=== PATIENT | male | born 1935 | race Caucasian/White ===

== ENCOUNTER 2017-09-16 14:36 | Emergency (ER) | payer MEDICARE, BC ==
[~2017-09-16] VITALS: Ht 175.3 cm; Wt 84.0 kg
[~2017-09-16 14:36] MED LIST: ALBU1AER INH; ASPI81 PO; FISH120014 PO; GLIM2TAB PO; GLUCTAB PO; LORTA5 PO; METO25 PO; MULT-34 PO; SIMV40TA PO; SPIRCAP INH; SYMB80AE INH; TRAM50TA PO
[2017-09-16 14:40] VITALS: BP 137/88; PULSE 114; RESP 18; TEMP 99.1; O2SAT 95
[2017-09-16] MEDS ORDERED: LOSA50TA PO (15:12)
[2017-09-16] MEDS ORDERED: GABA300C5 PO (15:12)
[2017-09-16] MEDS ORDERED: TAMS0.4C4 (15:12)
[2017-09-16] MEDS ORDERED: DOCU250C7 (15:12)
[2017-09-16] MEDS ORDERED: METO25TA3 PO (15:12)
[2017-09-16] MEDS ORDERED: ASPI-516 CHEW (15:12)
[2017-09-16] MEDS ORDERED: EMPA1TAB PO (15:12)
[2017-09-16] MEDS ORDERED: ATOR20TA15 PO (15:12)
[2017-09-16] MEDS ORDERED: METF500T PO (15:12)
[2017-09-16] MEDS ORDERED: SODIUM CHLORIDE 0.9% FLUSH 10 ML FLUSH IV FLUSH PRN (15:15)
[2017-09-16] MEDS ORDERED: SODIUM CHLORID 0.9% 500 ML INJ 500 ML IV ONE (15:15)
[2017-09-16 15:52] LABS: BILIRUBIN, URINE NEG (NEG); BLOOD, URINE MOD (NEG); GLUCOSE,URINE 1000 OR GREATER mg/dL (NEG); KETONE, URINE 40 mg/dL (NEG); NITRITE,URINE NEG (NEG); URINE COLOR YELLOW (YELLW/STRAW); URINE LEUKOCYTE ESTERASE NEG (NEG)
[2017-09-16 16:04] LABS: BICARBONATE 21.4 MEQ/L (21.0-32.0); CALCIUM 9.5 MG/DL (8.5-10.1)
[2017-09-16 16:07] LABS: BACTERIA, URINE MANY /hpf; RBC, URINE 0-3 /hpf (0-3); WBC, URINE 0-2 /hpf (0-5)
[2017-09-16 16:08] LABS: CREATININE 1.2 MG/DL (0.60-1.30)
[2017-09-16] MEDS ORDERED: cefTRIAXone INJ 1,000 MG in SODIUM CHLORIDE 0.9% INJ 100 ML IV ONE (16:15)
[2017-09-16 16:18] LABS: AUTOMATED NEUTROPHIL # 13.6 TH/MM3 (1.8-7.7); BASOPHIL # 0.1 TH/MM3 (0-0.2); BASOPHIL % 0.6 % (0.0-2.0); EOSINOPHIL % 0.1 % (0.0-4.0); HEMATOCRIT 41.8 % (39.0-51.0); LYMPH % 5.6 % (9.0-44.0); LYMPHOCYTE # 0.9 TH/MM3 (1.0-4.8); MEAN CELL VOLUME 96.3 FL (80.0-100.0); MEAN CORPUSCULAR HEMOGLOBIN 32.3 PG (27.0-34.0); MEAN CORPUSCULAR HGB CONC 33.5 % (32.0-36.0); MEAN PLATELET VOLUME 8.4 FL (7.0-11.0); MONO % 8.3 % (0.0-8.0); MONOCYTE # 1.3 TH/MM3 (0-0.9); NEUT % 85.4 % (16.0-70.0); PLATELET COUNT 257 TH/MM3 (150-450); RED BLOOD COUNT 4.34 MIL/MM3 (4.50-5.90); RED CELL DISTRIBUTION WIDTH 13.8 % (11.6-17.2); WHITE BLOOD COUNT 15.9 TH/MM3 (4.0-11.0)
--- NOTE | 2017-09-16 16:29 | PD ---
HPI Chief Complaint: Complaint Time Seen by Provider: 14:59 Travel History International Travel<30 days: No Contact w/Intl Traveler<30days: No Traveled to known affect area: No History of Present Illness HPI Patient is an 81-year-old male who presents the emergency room complaint of urinary urgency and frequency along with dysuria and urinary retention. Patient reports increased fullness to his lower abdomen. Patient denies any nausea vomiting, denies any constipation diarrhea. Patient denies any fevers or chills, denies any flank pain. patient reports that since Thursday, he has been having urinary issues. Reports that he has had acute urinary retention in the past secondary surgeries. Patient reports no history of BPH in the past. PFSH Past Medical History Cancer: No Cardiovascular Problems: Yes (CAD) High Cholesterol: Yes Diabetes: Yes Patient Takes Glucophage: Yes Diminished Hearing: No Endocrine: Yes Gastrointestinal Disorders: Yes (REFLUX) Genitourinary: No Hiatal Hernia: No Hypertension: Yes Immune Disorder: No Musculoskeletal: Yes (ARTHRITIS,BACK AND NECK) Neurologic: No Psychiatric: No Respiratory: Yes (PNEUMONIA, BRONCHITIES,ASTHMA) Thyroid Disease: No Tetanus Vaccination: < 5 Years Influenza Vaccination: Yes ?: Not Past Surgical History Appendectomy: Yes Cardiac Surgery: Yes (3 STENTS) Coronary Stent: Yes (TIMES 3 ON LEFT) Eye Surgery: Yes (RIGHT CATARACT REMOVED) Tonsillectomy: Yes Other Surgery: Yes (NECK SURGERY) Social History Alcohol Use: Yes (DAILY) Tobacco Use: No Substance Use: No Allergies-Medications (Allergen,Severity, Reaction): Coded Allergies: No Known Allergies (Unverified Adverse Reaction, Unknown, 09/16/17) Reported Meds & Prescriptions Reported Meds & Active Scripts Active Cipro (Ciprofloxacin HCl) 500 Mg Tab 500 Mg PO BID 7 Days Reported Tamsulosin (Tamsulosin HCl) 0.4 Mg Cap 0.4 Mg HS Metoprolol Tartrate 25 Mg Tab 25 Mg PO BID Metformin (Metformin HCl) 500 Mg Tab 500 Mg PO BIDPC Losartan (Losartan Potassium) 50 Mg Tab 50 Mg PO DAILY Jardiance (Empagliflozin) 10 Mg Tab 10 Mg PO DAILY Gabapentin 300 Mg Cap 300 Mg PO TID Docusate Sodium 250 Mg Cap 250 Mg DAILY Atorvastatin (Atorvastatin Calcium) 20 Mg Tab 20 Mg PO HS Aspirin 81 Mg Chew 81 Mg CHEW DAILY Review of Systems General / Constitutional: No: Fever Eyes: No: Visual changes HENT: No: Headaches Cardiovascular: No: Chest Pain or Discomfort Respiratory: No: Shortness of Breath Gastrointestinal: Positive: Abdominal Pain, No: Nausea, Vomiting, Diarrhea, Constipation Genitourinary: Positive: Urgency, Frequency, Dysuria, Decreased Urinary Output , Hesitancy, Incontinence Musculoskeletal: No: Pain Skin: No Rash Neurologic: No: Weakness Psychiatric: No: Depression Endocrine: No: Polydipsia Hematologic/Lymphatic: No: Easy Bruising Physical Exam Narrative GENERAL: Moderate distress SKIN: Focused skin assessment warm/dry. HEAD: Atraumatic. Normocephalic. EYES: Pupils equal and round. No scleral icterus. No injection or drainage. ENT: No nasal bleeding or discharge. Mucous membranes pink and moist. NECK: Trachea midline. No JVD. CARDIOVASCULAR: Regular rate and rhythm. No murmur appreciated. RESPIRATORY: No accessory muscle use. Clear to auscultation. Breath sounds equal bilaterally. GASTROINTESTINAL: Abdomen soft, tender lower abdomen in the suprapubic region, distended. Hepatic and splenic margins not palpable. Patient with no flank pain on exam MUSCULOSKELETAL: No obvious deformities. No clubbing. No cyanosis. No edema. NEUROLOGICAL: Awake and alert. No obvious cranial nerve deficits. Motor grossly within normal limits. Normal speech. PSYCHIATRIC: Appropriate mood and affect; insight and judgment normal. Data Data Last Documented VS Vital Signs Date Time Temp Pulse Resp B/P (MAP) Pulse Ox O2 Delivery O2 Flow Rate FiO2 09/16/17 17:09 85 135/68 (90) 95 09/16/17 14:40 99.1 18 Orders Orders Basic Metabolic Panel (Bmp) (09/16/17 15:05) Complete Blood Count With Diff (09/16/17 15:05) Urinalysis - C+S If Indicated (09/16/17 15:05) Iv Access Insert/Monitor (09/16/17 15:05) Sodium Chloride 0.9% Flush (Ns Flush) (09/16/17 15:15) Urinary Catheter Insert/Apply (09/16/17 15:05) Sodium Chlorid 0.9% 500 Ml Inj (Ns 500 M (09/16/17 15:15) Urine Culture (09/16/17 15:45) Ceftriaxone Inj (Rocephin Inj) (09/16/17 16:15) Labs Laboratory Tests Test 09/16/17 15:45 White Blood Count 15.9 TH/MM3 Red Blood Count 4.34 MIL/MM3 Hemoglobin 14.0 GM/DL Hematocrit 41.8 % Mean Corpuscular Volume 96.3 FL Mean Corpuscular Hemoglobin 32.3 PG Mean Corpuscular Hemoglobin Concent 33.5 % Red Cell Distribution Width 13.8 % Platelet Count 257 TH/MM3 Mean Platelet Volume 8.4 FL Neutrophils (%) (Auto) 85.4 % Lymphocytes (%) (Auto) 5.6 % Monocytes (%) (Auto) 8.3 % Eosinophils (%) (Auto) 0.1 % Basophils (%) (Auto) 0.6 % Neutrophils # (Auto) 13.6 TH/MM3 Lymphocytes # (Auto) 0.9 TH/MM3 Monocytes # (Auto) 1.3 TH/MM3 Eosinophils # (Auto) 0.0 TH/MM3 Basophils # (Auto) 0.1 TH/MM3 CBC Comment AUTO DIFF Differential Comment AUTO DIFF CONFIRMED Urine Collection Type CLEAN CATCH Urine Color YELLOW Urine Turbidity CLEAR Urine pH 5.0 Urine Specific [place] GREATER/EQUAL 1.030 Urine Protein 100 mg/dL Urine Glucose (UA) 1000 OR GREATER mg/dL Urine Ketones 40 mg/dL Urine Occult Blood MOD Urine Nitrite NEG Urine Bilirubin NEG Urine Urobilinogen 0.2 MG/DL Urine Leukocyte Esterase NEG Urine RBC 0-3 /hpf Urine WBC 0-2 /hpf Urine Bacteria MANY /hpf Microscopic Urinalysis Comment CULTURE INDICATED Blood Urea Nitrogen 29 MG/DL Creatinine 1.20 MG/DL Random Glucose 202 MG/DL Calcium Level 9.5 MG/DL Sodium Level 137 MEQ/L Potassium Level 4.1 MEQ/L Chloride Level 102 MEQ/L Carbon Dioxide Level 21.4 MEQ/L Anion Gap 14 MEQ/L Estimat Glomerular Filtration Rate 58 ML/MIN [facility] Medical Decision Making Medical Screen Exam Complete: Yes Emergency Medical Condition: Yes Medical Record Reviewed: Yes Interpretation(s) Vital Signs Date Time Temp Pulse Resp B/P (MAP) Pulse Ox O2 Delivery O2 Flow Rate FiO2 09/16/17 14:40 99.1 114 18 137/88 (104) 95 Differential Diagnosis acute urinary retention, electrolyte abnormality, uti Narrative Course During the course of the patients emergency department visit, the patients history, examination, and differential diagnosis were reviewed with the patient. The patient was placed on a groundwater monitoring technician with oximetry and frequent blood pressure monitoring. The patient had an IV access obtained and blood work sent for analysis. The patient was initially provided IVF Ribera catheter was placed - 1500ml of urine output was obtained The patients laboratory studies were reviewed and remarkable for: CBC & BMP Diagram 09/16/17 15:45 Calcium Level 9.5 UA positive for moderate blood, 40 ketones, thousand or greater glucose, many bacteria, and IV dose of Rocephin was administered to patient. I reviewed all labs and also with patient in detail, patient was given an IV dose of Rocephin in the emergency room for treatment of UTI, patient does feel well enough to be discharged home with outpatient follow-up. Patient understands needs to follow with primary care doctor as well as a urologist, signs and symptoms of when to return to the emergency room was reviewed patient detail. Diagnosis Primary Impression: Acute urinary retention Additional Impressions: UTI (urinary tract infection) Qualified Codes: N30.01 - Acute cystitis with hematuria Renal insufficiency Referrals: Jesus Ruth DO Patient Instructions: General Instructions Additional Instructions: Please provide patient with a copy of their lab work at discharge Please follow up with your primary care doctor in 2-3 days Return to the ER if symptoms worsen or progress or if you develop any fevers or chills or worsening symptoms Return to the ER as needed Please follow-up with urologist as soon as possible Please follow-up with all cultures from today Please take all antibiotics as prescribed, drink plenty of fluids Med/Other Pt SpecificInfo: Prescription(s) given Scripts Ciprofloxacin (Cipro) 500 Mg Tab 500 MG PO BID for Infection for 7 Days, #14 TAB 0 Refills Prov: Flores Blas DO 09/16/17 Disposition: 01 DISCHARGE HOME Condition: Stable Flores Blas DO Sep 16, 2017 16:29
[2017-09-16] MEDS ORDERED: CIPR-9 PO (16:52)
[2017-09-16 17:09] VITALS: BP 135/68; PULSE 85; O2SAT 95
== END 2017-09-16 17:44 | disposition home or self-care (01) ==
LOC: PHED 14:36
DX: R33.9 Retention of urine, unspecified (principal); N39.0 Urinary tract infection, site not specified; B95.2 Enterococcus as the cause of diseases classified elsewhere; N28.9 Disorder of kidney and ureter, unspecified; E78.00 Pure hypercholesterolemia, unspecified; I25.10 Atherosclerotic heart disease of native coronary artery without angina pectoris; E11.9 Type 2 diabetes mellitus without complications; K21.9 Gastro-esophageal reflux disease without esophagitis; I10 Essential (primary) hypertension
CPT/HCPCS: 80048; 81001; 85025; 87077; 87086; 87186; 96365; 99284; J0696; J7040

== ENCOUNTER 2017-09-21 21:34 | Emergency (ER) | payer MEDICARE, BC ==
[~2017-09-21] VITALS: Ht 175.3 cm; Wt 84.5 kg
[~2017-09-21 21:34] MED LIST changes: -ALBU1AER INH; +ASPI-516 CHEW; -ASPI81 PO; +ATOR20TA15 PO; +CIPR-9 PO; +DOCU250C7; +EMPA1TAB PO; -FISH120014 PO; +GABA300C5 PO; -GLIM2TAB PO; -GLUCTAB PO; -LORTA5 PO; +LOSA50TA PO; +METF500T PO; -METO25 PO; +METO25TA3 PO; -MULT-34 PO; -SIMV40TA PO; -SPIRCAP INH; -SYMB80AE INH; +TAMS0.4C4; -TRAM50TA PO
[2017-09-21 22:02] VITALS: BP 164/74; PULSE 85; RESP 20; TEMP 98.8; O2SAT 96
[2017-09-21 22:51] LABS: BILIRUBIN, URINE NEG (NEG); BLOOD, URINE LARGE (NEG); GLUCOSE,URINE 100 mg/dL (NEG); KETONE, URINE TRACE mg/dL (NEG); NITRITE,URINE POS (NEG); PH, URINE 6.5 (5.0-8.5); URINE LEUKOCYTE ESTERASE SMALL (NEG)
[2017-09-21 22:53] LABS: URINE COLOR RED (YELLW/STRAW)
[2017-09-21 22:56] LABS: RBC, URINE INNUM /hpf (0-3); SQUAMOUS EPITHELIAL CELL URINE 0-5 /hpf (0-5)
[2017-09-21] MEDS ORDERED: RAPA8CAP PO (23:02)
--- NOTE | 2017-09-22 00:06 | PD ---
HPI Chief Complaint: Complaint Time Seen by Provider: 23:54 Travel History International Travel<30 days: No Contact w/Intl Traveler<30days: No Traveled to known affect area: No History of Present Illness HPI The patient is an 81-year-old male that had hematuria tonight. He came in Thursday for urinary retention and was given a Ribera catheter and leg bag. He went into the urologist today and the catheter was taken out but after a few hours he still had the urinary retention and they had to replace the catheter in the leg bag. He noted some blood in his urine tonight. He denies any clots and denies any bladder distention or bladder discomfort. He denies any fever. He denies any nausea, vomiting or diarrhea. PFSH Past Medical History Cancer: No Cardiovascular Problems: Yes (CAD) High Cholesterol: Yes Diabetes: Yes Diminished Hearing: No Endocrine: Yes Gastrointestinal Disorders: Yes (REFLUX) Genitourinary: No Hiatal Hernia: No Hypertension: Yes Immune Disorder: No Musculoskeletal: Yes (ARTHRITIS,BACK AND NECK) Neurologic: No Psychiatric: No Respiratory: Yes (PNEUMONIA, BRONCHITIES,ASTHMA) Thyroid Disease: No Past Surgical History Appendectomy: Yes Cardiac Surgery: Yes (3 STENTS) Coronary Stent: Yes (TIMES 3 ON LEFT) Eye Surgery: Yes (RIGHT CATARACT REMOVED) Tonsillectomy: Yes Other Surgery: Yes (NECK SURGERY) Social History Alcohol Use: Yes (DAILY) Tobacco Use: No Substance Use: No Allergies-Medications (Allergen,Severity, Reaction): Coded Allergies: No Known Allergies (Unverified Adverse Reaction, Unknown, 09/21/17) Reported Meds & Prescriptions Reported Meds & Active Scripts Active Cipro (Ciprofloxacin HCl) 500 Mg Tab 500 Mg PO BID 7 Days Reported Rapaflo (Silodosin) 8 Mg Cap 8 Mg PO DAILY Metoprolol Tartrate 25 Mg Tab 25 Mg PO BID Metformin (Metformin HCl) 500 Mg Tab 500 Mg PO BIDPC Losartan (Losartan Potassium) 50 Mg Tab 50 Mg PO DAILY Jardiance (Empagliflozin) 10 Mg Tab 10 Mg PO DAILY Gabapentin 300 Mg Cap 300 Mg PO TID Atorvastatin (Atorvastatin Calcium) 20 Mg Tab 20 Mg PO HS Aspirin 81 Mg Chew 81 Mg CHEW DAILY Review of Systems Except as stated in HPI: all other systems reviewed are Neg Physical Exam Narrative GENERAL: The patient is alert, oriented 3 and no apparent distress except for his Ribera catheter and leg bag. His vital signs show blood pressure 164/74 but are otherwise normal. SKIN: Focused skin assessment warm/dry. HEAD: Atraumatic. Normocephalic. EYES: Pupils equal and round. No scleral icterus. No injection or drainage. ENT: No nasal bleeding or discharge. Mucous membranes pink and moist. NECK: Trachea midline. No JVD. CARDIOVASCULAR: Regular rate and rhythm. No murmur appreciated. RESPIRATORY: No accessory muscle use. Clear to auscultation. Breath sounds equal bilaterally. GASTROINTESTINAL: Abdomen soft, non-tender, nondistended. Hepatic and splenic margins not palpable. No guarding or rebound is present. No bladder distention is present. MUSCULOSKELETAL: No obvious deformities. No clubbing. No cyanosis. No edema. NEUROLOGICAL: Awake and alert. No obvious cranial nerve deficits. Motor grossly within normal limits. Normal speech. PSYCHIATRIC: Appropriate mood and affect; insight and judgment normal. Data Data Last Documented VS Vital Signs Date Time Temp Pulse Resp B/P (MAP) Pulse Ox O2 Delivery O2 Flow Rate FiO2 09/21/17 22:02 98.8 85 20 164/74 (104) 96 Orders Orders Urinalysis - C+S If Indicated (09/21/17 22:33) Urine Culture (09/21/17 22:25) Labs Laboratory Tests Test 09/21/17 22:25 Urine Color RED Urine Turbidity CLOUDY Urine pH 6.5 Urine Specific [place] 1.020 Urine Protein 100 mg/dL Urine Glucose (UA) 100 mg/dL Urine Ketones TRACE mg/dL Urine Occult Blood LARGE Urine Nitrite POS Urine Bilirubin NEG Urine Urobilinogen 1.0 MG/DL Urine Leukocyte Esterase SMALL Urine RBC INNUM /hpf Urine WBC 9-14 /hpf Urine Squamous Epithelial Cells 0-5 /hpf Urine Bacteria /hpf Microscopic Urinalysis Comment CATH-CULTURE IND MDM Medical Decision Making Medical Screen Exam Complete: Yes Emergency Medical Condition: Yes Medical Record Reviewed: Yes Interpretation(s) The urine shows red in color with cloudy turbidity and large amount of blood with positive nitrite and small leukocyte Estrace and 9-14 white cells with innumerable red cells. I can read newsprint through the urinary tubing. Differential Diagnosis Hematuria from bladder infection, hematuria from urethral trauma, hematuria with clots, mild hematuria Narrative Course The patient appears to have mild hematuria. This is likely from the catheter being taken out and put back in today. The white cells in the urine appear to be proportional to the amount of blood in the urine. This does not appear to be an infection at this time. There are no clots in the urine and the urine is only blood-tinged and not completely bloody. Diagnosis Primary Impression: Traumatic hematuria Additional Instructions: Follow-up with the urologist as scheduled. It appears the blood in the urine was from trauma to the urethra as the catheter was taken out and then put back in today. Continue to take the Cipro. Disposition: 01 DISCHARGE HOME Condition: Stable Nicola Weir MD Sep 22, 2017 00:06
[2017-09-22 00:12] VITALS: BP 155/75
== END 2017-09-22 00:19 | disposition home or self-care (01) ==
LOC: PHED 21:34
DX: T83.83XA Hemorrhage due to genitourinary prosthetic devices, implants and grafts, initial encounter (principal); I25.10 Atherosclerotic heart disease of native coronary artery without angina pectoris; E78.00 Pure hypercholesterolemia, unspecified; E11.9 Type 2 diabetes mellitus without complications; I10 Essential (primary) hypertension; K21.9 Gastro-esophageal reflux disease without esophagitis; J45.909 Unspecified asthma, uncomplicated; M19.90 Unspecified osteoarthritis, unspecified site
CPT/HCPCS: 81001; 87086; 99283